=== PATIENT | female | born 2000 | race African-American/Black ===

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

== ENCOUNTER 2022-09-03 14:26 | Emergency (ER) | payer MEDICAID, OTHER ==
[~2022-09-03] VITALS: Ht 167.6 cm; Wt 63.0 kg
[2022-09-03] MEDS ORDERED: KETOROLAC 15MG/ML VIAL IV ONE (20:00)
[2022-09-03 21:33] LABS: CLARITY URINE CLEAR (CLEAR); COLOR URINE YELLOW (YELLOW); KETONES URINE NEGATIVE (NEGATIVE); LEUKOCYTE ESTERASE URINE NEGATIVE (NEGATIVE); NITRITE URINE NEGATIVE (NEGATIVE); OCCULT BLOOD URINE 1+ (NEGATIVE); PROTEIN URINE NEGATIVE (NEGATIVE); SPECIFIC GRAVITY URINE 1.015 (1.005-1.030); UROBILINOGEN URINE 0.2 E.U./dL (0.2-1.0)
[2022-09-03 21:44] LABS: CHLORIDE 105 mEq/L (98-107)
[2022-09-03 22:04] LABS: BASOPHILS % 0.4 % (0.0-2.0); EOSINOPHILS % 0.6 % (0.0-5.0); HEMATOCRIT. 40.9 % (36.0-48.0); HEMOGLOBIN. 13.7 g/dL (12.0-16.0); LYMPHOCYTES % 25.4 % (20.0-50.0); MEAN CORPUSCULAR HEMOGLOBIN 28.1 pg (28.0-32.0); MEAN CORPUSCULAR VOLUME 83.6 fL (81.0-99.0); MEAN PLATELET VOLUME 8.2 fl (7.4-10.4); MONOCYTES % 5.5 % (2.0-8.0); NEUTROPHILS % 68.1 % (40.0-76.0); PLATELET 239 x1000/uL (130-400); RED BLOOD CELL COUNT 4.89 mill/uL (4.2-5.4); RED CELL DISTRIBUTION WIDTH 13.8 % (11.6-14.6)
[2022-09-04] MEDS ORDERED: IOHEXOL-300 100 ML BOTTLE ONE (04:16)
[2022-09-04 09:09] VITALS: BP 127/67
== END 2022-09-04 09:11 | disposition home or self-care (01) ==
LOC: ER 14:26
DX: R10.31 Right lower quadrant pain (principal); R05.9 Cough, unspecified
CPT/HCPCS: 36415; 74178; 76830; 76856; 76857; 80053; 81003; 81025; 83605; 83690; 84702; 85025; 93005; 96374; 99285; J1885; Q9967; Z7610

== ENCOUNTER 2022-10-30 17:03 | Emergency (ER) | payer OTHER ==
[~2022-10-30] VITALS: Ht 167.6 cm; Wt 50.0 kg
[2022-10-30] MEDS ORDERED: ONDANSETRON HCL 4MG TABLET PO ONE (18:00)
[2022-10-30 18:09] LABS: BASOPHILS % 0.3 % (0.0-2.0); EOSINOPHILS % 0.5 % (0.0-5.0); HEMATOCRIT. 40.5 % (36.0-48.0); HEMOGLOBIN. 13.1 g/dL (12.0-16.0); LYMPHOCYTES % 25.8 % (20.0-50.0); MEAN CORPUSCULAR HEMOGLOBIN 27.4 pg (28.0-32.0); MEAN CORPUSCULAR VOLUME 84.8 fL (81.0-99.0); MEAN PLATELET VOLUME 8.1 fl (7.4-10.4); MONOCYTES % 6.3 % (2.0-8.0); NEUTROPHILS % 67.1 % (40.0-76.0); PLATELET 250 x1000/uL (130-400); RED BLOOD CELL COUNT 4.78 mill/uL (4.2-5.4); RED CELL DISTRIBUTION WIDTH 13.8 % (11.6-14.6)
[2022-10-30 18:18] LABS: CLARITY URINE TURBID (CLEAR); COLOR URINE YELLOW (YELLOW); KETONES URINE TRACE (NEGATIVE); LEUKOCYTE ESTERASE URINE 1+ (NEGATIVE); NITRITE URINE NEGATIVE (NEGATIVE); OCCULT BLOOD URINE 3+ (NEGATIVE); PH URINE 6.5 (4.5-8.0); PROTEIN URINE 2+ (NEGATIVE); SPECIFIC GRAVITY URINE 1.021 (1.005-1.030); UROBILINOGEN URINE 0.2 E.U./dL (0.2-1.0)
[2022-10-30 18:18] LABS: CHLORIDE 109 mEq/L (98-107)
[2022-10-30 18:26] LABS: ETHANOL BLOOD < 10 mg/dL
[2022-10-30 18:42] LABS: *AMPHETAMINES SCREEN URINE NEGATIVE (NEGATIVE); *BARBITURATES SCREEN URINE NEGATIVE (NEGATIVE); *BENZODIAZEPINES SCREEN URINE NEGATIVE (NEGATIVE); *COCAINE SCREEN URINE NEGATIVE (NEGATIVE); METHADONE URINE SCREEN NEGATIVE (NEGATIVE); OPIATES URINE SCREEN NEGATIVE (NEGATIVE); PHENCYCLIDINE URINE SCREEN NEGATIVE (NEGATIVE)
[2022-10-30 18:44] LABS: CANNABINOID URINE SCREEN PRESUMTIVE POSITIVE (NEGATIVE)
[2022-10-30 18:48] LABS: HCG SCREEN NEGATIVE
[2022-10-30 22:04] LABS: CHLORIDE 109 mEq/L (98-107)
[2022-10-31] MEDS: SERTRALINE HCL 25MG TABLET PO SCH (11:27)
[2022-10-31] MEDS ORDERED: LORAZEPAM 1MG TABLET PO ONE (21:00)
[2022-11-01] MEDS: SERTRALINE HCL 25MG TABLET PO SCH (09:55)
[2022-11-01] MEDS ORDERED: LORAZEPAM 1MG TABLET PO ONE (21:30)
[2022-11-02] MEDS: SERTRALINE HCL 25MG TABLET PO SCH (08:50)
[2022-11-02] MEDS ORDERED: SERT25TA MT (10:17)
[2022-11-02 11:11] VITALS: BP 119/84
== END 2022-11-02 11:12 | disposition home or self-care (01) ==
LOC: ER 17:03
DX: T39.312A Poisoning by propionic acid derivatives, intentional self-harm, initial encounter (principal); Z75.1 Person awaiting admission to adequate facility elsewhere; Z20.822 Contact with and (suspected) exposure to COVID-19; Y92.018 Other place in single-family (private) house as the place of occurrence of the external cause
CPT/HCPCS: 36415; 80053; 80305; 80307; 80320; 80329; 81003; 81025; 84703; 85025; 93005; 99285; C9803; Q0162; U0003; U0005; G0480

== ENCOUNTER 2023-04-27 14:03 | Emergency (ER) | payer MEDICAID ==
[~2023-04-27] VITALS: Ht 167.6 cm; Wt 54.5 kg
[~2023-04-27 14:03] MED LIST: SERT25TA MT
[2023-04-27] MEDS ORDERED: ACETAMINOPHEN 325MG TABLET PO ONE (15:45)
[2023-04-27] MEDS ORDERED: IBUP-2029 MT (16:30)
[2023-04-27 17:07] VITALS: BP 127/68
== END 2023-04-27 17:09 | disposition home or self-care (01) ==
LOC: ER 14:03
DX: S90.32XA Contusion of left foot, initial encounter (principal); W18.30XA Fall on same level, unspecified, initial encounter; Y93.89 Activity, other specified; Y92.89 Other specified places as the place of occurrence of the external cause; Y99.8 Other external cause status
CPT/HCPCS: 73630; 99283

== ENCOUNTER 2024-02-25 07:38 | Emergency (ER) | payer OTHER ==
[~2024-02-25] VITALS: Ht 175.3 cm; Wt 59.0 kg
[~2024-02-25 07:38] MED LIST changes: +IBUP-2029 MT
[2024-02-25 07:43] VITALS: O2SAT 99
[2024-02-25] MEDS: KETOROLAC 15MG/ML VIAL IM ONE (08:49)
[2024-02-25 10:25] LABS: HEMATOCRIT 39.5 % (36.0-48.0); HEMOGLOBIN 12.8 g/dL (12.0-16.0); MEAN CORPUSCULAR HEMOGLOBIN 27.6 pg (28.0-32.0); MEAN CORPUSCULAR HGB CONC 32.5 g/dL (31.0-37.0); PLATELET 222 x1000/uL (130-400); RED BLOOD CELL COUNT 4.64 mill/uL (4.2-5.4); RED CELL DISTRIBUTION WIDTH 14.1 % (11.6-14.6); WHITE BLOOD COUNT 13.4 x1000/uL (4.5-11.0)
[2024-02-25 10:49] LABS: ALANINE AMINOTRANSFERASE 41 IU/L (10-49); ALBUMIN 3.9 g/dL (3.2-4.8); ASPARTATE AMINOTRANSFERASE 31 IU/L (<34); BILIRUBIN TOTAL 0.2 mg/dL (0.1-1.0); CALCIUM 8.3 mg/dL (8.7-10.4); CARBON DIOXIDE 26 mEq/L (21-32); CHLORIDE 106 mEq/L (98-107); CREATININE 0.6 mg/dL (0.6-1.0); GLUCOSE 96 mg/dL (70-105); POTASSIUM 4.1 mEq/L (3.5-5.1); PROTEIN TOTAL 5.8 g/dL (6.0-8.3); SODIUM 137 mEq/L (136-145); UREA NITROGEN BLOOD 11 mg/dL (9-23)
[2024-02-25 11:36] VITALS: TEMP 98
[2024-02-25 11:45] VITALS: BP 118/62; PULSE 70; RESP 16
[2024-02-25] MEDS: IBUPROFEN 600MG TABLET PO ONE (11:45)
== END 2024-02-25 12:28 | disposition home or self-care (01) ==
LOC: ER 08:01
DX: S80.12XA Contusion of left lower leg, initial encounter (principal); M25.562 Pain in left knee; M25.561 Pain in right knee; X58.XXXA Exposure to other specified factors, initial encounter; Y93.89 Activity, other specified; Y92.89 Other specified places as the place of occurrence of the external cause; Y99.8 Other external cause status
CPT/HCPCS: 80053; 85027; 36415; 73560; 96372; 99284; J1885; Z7610 ×3

== ENCOUNTER 2024-07-19 08:48 | Emergency (ER) | payer OTHER ==
[~2024-07-19] VITALS: Ht 167.6 cm; Wt 59.0 kg
[2024-07-19 08:54] VITALS: O2SAT 98
[2024-07-19] MEDS: TETANUS, DIPHTHERIA, PERTUSSIS VAC/PF 0.5ML (>10YR OLD) IM ONE (09:26)
[2024-07-19 09:44] VITALS: BP 126/75; PULSE 68; RESP 14; TEMP 36.94740; O2SAT 100
== END 2024-07-19 09:47 | disposition home or self-care (01) ==
LOC: ER 08:48
DX: S91.119A Laceration without foreign body of unspecified toe without damage to nail, initial encounter (principal); W10.1XXA Fall (on)(from) sidewalk curb, initial encounter; Y93.89 Activity, other specified; Y92.89 Other specified places as the place of occurrence of the external cause; Y99.8 Other external cause status
CPT/HCPCS: 90715; 12001; 90471; 99283; Z7610